=== PATIENT | male | born 1960 | race Caucasian/White ===

== ENCOUNTER 2024-08-02 14:37 | Outpatient (CLI) | payer BC ==
[~2024-08-02 14:37] MED LIST: Iopamidol 300 61% 100 ML VIAL FS ONE
== END 2024-08-02 14:38 | disposition home or self-care (01) ==
LOC: CSHCT 14:37
PROVIDERS: ATTEND Internal Medicine
DX: R59.0 Localized enlarged lymph nodes (principal)
CPT/HCPCS: 36415; 72193; 82565; Q9967